=== PATIENT | female | born 2000 | race Caucasian/White ===

== ENCOUNTER 2021-09-01 10:34 | Emergency (ER) | payer BC, MEDICAID, SELFPAY ==
[2021-09-01 10:45] VITALS: BP 120/75; PULSE 98; RESP 16; TEMP 37.3; O2SAT 100; BMI 19.3
[2021-09-01 11:11] LABS: Rapid Strep A Test Negative (Negative)
--- NOTE | 2021-09-01 14:25 | ED_ITS ---
HPI - General Adult General: Chief complaint: General Medical Stated complaint: Tonsils swollen, white dots in throat, & swollow Time Seen by Provider: 09/01/21 10:50 History of Present Illness: HPI narrative: Patient has swollen tonsil tenderness right side of her tonsil with the exudate noted on tonsil patient's had sore throat for the last 2 to 3 days Onset (ago): day(s) Associated symptoms: Reports no associated symptoms; Deny chest pain, dyspnea, headache(s), nausea, rash or vomiting Review of Systems Const: Denies: fever(s), chills or body aches Eyes: Denies: change in vision or blurry vision ENMT: Reports: throat pain, enlarged tonsils, odynophagia and other (Denies any rash or swollen lymph glands); Denies: nasal congestion Card: Denies: chest pain or dyspnea on exertion Resp: Denies: dyspnea, productive cough or non-productive cough GI: Denies: abdominal pain, nausea or vomiting Musc: Denies: extremity pain Skin/Breast: Denies: rash Neuro: Denies: headache(s) Psych: Denies: anxiety or depression Terry/Lymph: Denies: easy bruising [facility] ED Female Reproductive History: Date of last menstrual period: 08/31/21 Physical Exam Const: COMMON NORMALS: no acute distress (Child appears very well is playful in no distress) GENERAL APPEARANCE: cooperative HENMT: COMMON NORMALS: normocephalic, external ears normal, EAC's normal, TM's normal bilaterally and Normal external nose present HEAD & SCALP: normal to inspection and normocephalic FACE & SINUS: normal facial exam NOSE: Normal external nose present and No nasal discharge present EXTERNAL EAR: Yes external ears normal EXTERNAL AUDITORY CANAL: EAC's normal TYMPANIC MEMBRANE: TM's normal bilaterally MOUTH: Normal oral and palatal mucosa present THROAT: abnormal tonsil right erythema, exudates and hypertrophy and left erythema and hypertrophy Eye: COMMON NORMALS: conjunctivae normal CONJUNCTIVA: Yes conjunctivae normal Lymph: LYMPHATIC: no lymphadenopathy noted Chest: COMMONS NORMALS: normal inspection of the chest Resp: COMMON NORMALS: normal respiratory effort, No retractions, No use of accessory muscles and clear to auscultation bilaterally AUSCULTATION: clear to auscultation bilaterally Cardio: COMMON NORMALS: regular rate and regular rhythm RATE: regular rate RHYTHM: regular rhythm GI: COMMON NORMALS: Normal to inspection, nondistended, normoactive bowel sounds present Extremity: COMMON NORMALS: normal to inspection Skin: COMMON NORMALS: no rashes or lesions noted GENERAL SKIN EXAM: no rashes or lesions noted Course Vital Signs: Vital signs: Vital Signs Temperature 99.1 F 09/01/21 10:45 Pulse Rate 98 09/01/21 10:45 Respiratory Rate 16 09/01/21 10:45 Blood Pressure 120/75 09/01/21 10:45 Pulse Oximetry 100 09/01/21 10:45 MDM - General Adult Lab Data: Labs: Lab Results 09/01/21 10:52 Group A Strep Rapi d Negative (Negative) Discharge Plan Discharge Patient Disposition: Home Clinical Impression: Acute tonsillitis Qualifiers: Pharyngitis/tonsillitis etiology: unspecified etiology Qualified Code(s): J03.90 - Acute tonsillitis, unspecified Condition: Stable Prescriptions: New amoxicillin 500 mg capsule 500 mg PO TID 10 Days Qty: 30 RF: 0 Discharge Orders: Discharge ED (Routine); Ordered 09/01/21 Ordered By: Yash Santacruz Discharge Diet: Usual diet Discharge Activity: Increase activity as tolerated Patient Instructions: Tonsillitis (ED) Activity Restrictions/Additional Instructions: Follow-up with medical provider as directed. Take medications as prescribed. Return to the ER or your medical provider if condition worsens. Please read and understand discharge instructions. If any questions ask please. Coding Level of Care Code ED Cardiac/Vascular Sonographer for Zelda Chang
== END 2021-09-01 11:33 | disposition home or self-care (01) ==
LOC: ER 11:34
PROVIDERS: Family Medicine; Emergency Provider Nurse Practitioner Family
DX: J03.90 Acute tonsillitis, unspecified (principal)
CPT/HCPCS: 87081; 87880; 99281